=== PATIENT | male | born 1940 | race Caucasian/White ===

== ENCOUNTER 2020-08-02 01:44 | Inpatient (IN) | payer MEDICARE ==
[~2020-08-02] VITALS: Ht 180.3 cm; Wt 90.7 kg
[2020-08-02 02:19] LABS: HEMOGLOBIN 15.8 gm/dl (14.0-17.5); RED BLOOD COUNT 4.84 M/UL (4.20-5.50); WHITE BLOOD COUNT 13.5 K/UL (4.5-11.0)
[2020-08-02 02:41] LABS: BUN/CREATININE RATIO 19 (0-10)
[2020-08-02] MEDS ORDERED: JARDIANCE25 MG PO (10:23)
[2020-08-02] MEDS ORDERED: FLOMAX 0.4 MG0.4 MG PO (10:24)
[2020-08-02] MEDS ORDERED: ATORVASTATIN CA80 MG PO (10:24)
[2020-08-02] MEDS ORDERED: TENORMIN 25 MG25 MG PO (10:25)
[2020-08-02] MEDS ORDERED: LISINOPRIL40 MG PO (10:25)
[2020-08-02] MEDS ORDERED: TRAZODONE HCL100 MG PO (10:26)
[2020-08-02] MEDS ORDERED: ASPIRIN EC81 MG PO (10:31)
[2020-08-02] MEDS ORDERED: [UNRECOGNIZED DRUG - OTHER] (10:41)
--- NOTE | 2020-08-02 14:06 | NUR ---
called report to 5th floor to [facility]. pt was moved to 5th floor by transport on [facility].
[2020-08-03 06:43] LABS: HEMOGLOBIN 13.5 gm/dl (14.0-17.5); RED BLOOD COUNT 4.16 M/UL (4.20-5.50)
[2020-08-03] MEDS ORDERED: CEFUROXIME500 MG PO (12:49)
== END 2020-08-03 16:46 | disposition home or self-care (01) | DRG 871 ==
LOC: ER1 01:44 → CDU 04:42 → PROG CARE 09:30 → M/S 14:13
PROVIDERS: Student in an Organized Health Care Education/Training Program; ADMIT Internal Medicine
DX: A41.9 Sepsis, unspecified organism (principal); J96.01 Acute respiratory failure with hypoxia; J15.6 Pneumonia due to other Gram-negative bacteria; E87.2 Acidosis; Z20.822 Contact with and (suspected) exposure to COVID-19; I25.10 Atherosclerotic heart disease of native coronary artery without angina pectoris; N18.30 Chronic kidney disease, stage 3 unspecified; I12.9 Hypertensive chronic kidney disease with stage 1 through stage 4 chronic kidney disease, or unspecified chronic kidney disease; Z86.73 Personal history of transient ischemic attack (TIA), and cerebral infarction without residual deficits
CPT/HCPCS: 0240U; 36415; 36600; 71045; 80048; 80053; 81001; 82550; 82553; 82803; 83605; 83874; 83880; 84484; 85025; 85379; 87040; 93005; 96365; 96375; 99285; J0456; J0696; J1650; J7030; Q9967

== ENCOUNTER → 2020-09-20 | Outpatient (CLI) | payer MEDICARE ==
[~2020-09-20] MED LIST: ASPIRIN EC81 MG PO; ATORVASTATIN CA80 MG PO; CEFUROXIME500 MG PO; FLOMAX 0.4 MG0.4 MG PO; JARDIANCE25 MG PO; LISINOPRIL40 MG PO; TENORMIN 25 MG25 MG PO; TRAZODONE HCL100 MG PO; [UNRECOGNIZED DRUG - OTHER]
== END ==
LOC: US 07:58
DX: R10.9 Unspecified abdominal pain (principal)
CPT/HCPCS: 76700